=== PATIENT | female | born 1980 | race Caucasian/White ===

== ENCOUNTER 2017-09-10 06:49 | Day surgery (SDC) | payer OTHER ==
[~2017-09-10] VITALS: Ht 165.1 cm; Wt 85.7 kg
[~2017-09-10 06:49] MED LIST: ADVAIR 250/501 DISK; ADVAIR 500/501 DISK IH; ANTIVERT12.5 MG PO; DILAUDID2 MG PO; ERGOCALCIF50000 UNIT PO; FERROUS SULFAT325 MG PO; HYDROCODON-ACE1 EAC7 PO; LEXAPRO10 MG PO; LOVENOX40 MG/0.4 SC; ORTHO EVRA PA1 PATCH TP; PRENATAL TABLE1 EAC3 PO; PROAIR HFA8.5 GM IH; PROVENTIL HFA6.7 GM; SENNA-TIME S T1 EACH PO
[2017-09-10 07:18] VITALS: BP 123/65
[2017-09-10 07:41] LABS: HEMATOCRIT 39.4 % (36.0-46.0); MCV 87.6 FL (83-99)
[2017-09-10 10:42] VITALS: BP 129/60
[2017-09-10 11:11] VITALS: BP 115/61
== END 2017-09-10 11:25 | disposition home or self-care (01) ==
LOC: SDC 06:49
PROVIDERS: Obstetrics & Gynecology Obstetrics
PROC: 10D17ZZ Extraction of Products of Conception, Retained, Via Natural or Artificial Opening (ICD-10-PCS; principal; 2017-09-10)
DX: O02.1 Missed abortion (principal); Z3A.12 12 weeks gestation of pregnancy; K21.9 Gastro-esophageal reflux disease without esophagitis; Z87.891 Personal history of nicotine dependence
CPT/HCPCS: 85014; 85018; 86850; 86900; 86901; 88305; J0690; J1100; J2250; J2405; J3010